=== PATIENT | female | born 1965 | race Caucasian/White ===

== ENCOUNTER 2022-04-16 11:42 | Emergency (ER) | payer OTHER ==
[2022-04-16 11:52] VITALS: BP 152/90; PULSE 80; RESP 19; TEMP 98.5
== END 2022-04-16 14:49 | disposition home or self-care (01) ==
LOC: JER 11:42
DX: U07.1 COVID-19 (principal)
CPT/HCPCS: 0241U-QW; 71046-TC-FY; 87651; 99284-25